=== PATIENT | female | born 1955 ===

== ENCOUNTER 2017-11-18 15:16 | Inpatient (IN) | payer OTHER ==
[2017-11-18 15:53] VITALS: BMI 22.9
[2017-11-18] MEDS ORDERED: Sodium Chloride 0.9% 1,000 ML IV ONE ×3 (16:01→16:58)
[2017-11-18] MEDS ORDERED: Sodium Chloride 0.9% 1,000 ML ONE ×2 (16:17→17:30)
[2017-11-18 16:27] LABS: BASO % 0.4 % (0.0-2.0); EOS % 0.2 % (0.0-4.0); HEMOGLOBIN 13.1 g/dL (11.0-16.0); LYMPH # 2.6 K/uL (1.0-4.3); LYMPH % 26.4 % (20.0-40.0); MEAN CELL VOLUME 90.6 fL (81.0-99.0); MEAN CORPUSCULAR HEMOGLOBIN 29.9 pg (27.0-31.0); MEAN CORPUSCULAR HGB CONC 33.1 g/dL (33.0-37.0); MEAN PLATELET VOLUME 10.8 fL (7.2-11.7); MONO # 0.5 K/uL (0.0-0.8); MONO % 5.1 % (0.0-10.0); NEUT # 6.8 K/uL (1.8-7.0); NEUT % 67.9 % (50.0-75.0); NRBC % 0.1 % (0.0-2.0); RBC 4.39 Mil/uL (3.80-5.20); RED CELL DISTRIBUTION WIDTH 13.1 % (11.5-14.5)
[2017-11-18 16:29] LABS: VENOUS BLOOD GAS BASE EXCESS 6.1 mmol/L (0.0-2.0); VENOUS BLOOD GAS PCO2 61 mmHg (40-60); VENOUS BLOOD GAS PO2 17 mm/Hg (30-55); VENOUS BLOOD PH 7.35 (7.32-7.43)
[2017-11-18 16:43] LABS: ALB/GLOB RATIO 1.4 (1.0-2.1); ALBUMIN 5.1 g/dL (3.5-5.0); CALCIUM 10.2 mg/dl (8.6-10.4)
[2017-11-18] MEDS ORDERED: (Novolin R) Insulin Human Regular 100 units/ml vial IVP ONE (16:57)
--- NOTE | 2017-11-18 17:25 | C.PDOC ---
History Of Present Illness 62-year-old female, presents to the emergency department with complaints of elevated blood sugar. PAtient had outpatient bloodwork done by PMD, who called her and said that blood sugar is elevated (>500) Patient admits to increased t jose alberto and urination. She denies any abdominal pain, nausea/vomiting, shortness of breath or chest pain. No PMHx of diabetes. No other complaints at this time. Time Seen by Provider: 11/18/17 15:55 Chief Complaint (Nursing): High Blood Sugar History Per: Patient History/Exam Limitations: no limitations Current Symptoms Are (Timing): Still Present Severity: Moderate Past Medical History Reviewed: Historical Data, Nursing Documentation, Vital Signs Vital Signs: Last Vital Signs Temp 98.4 F 11/18/17 15:53 Pulse 117 H 11/18/17 15:53 Resp 18 11/18/17 15:53 BP 101/69 11/18/17 15:53 Pulse Ox 100 11/18/17 15:53 - Medical History PMH: HTN, Hypercholesterolemia Family History: States: No Known Family Hx - Social History Hx Alcohol Use: No Hx Substance Use: No - Immunization History Hx Tetanus Toxoid Vaccination: No Hx Influenza Vaccination: No Hx Pneumococcal Vaccination: No Review Of Systems Constitutional: Negative for: Fever Cardiovascular: Negative for: Chest Pain Respiratory: Negative for: Shortness of Breath Gastrointestinal: Negative for: Nausea, Vomiting, Abdominal Pain Musculoskeletal: Negative for: Neck Pain, Back Pain Neurological: Negative for: Weakness, Numbness, Headache Physical Exam - Physical Exam Appears: Non-toxic, No Acute Distress Skin: Warm, Dry, No Rash Head: Atraumatic, Normacephalic Eye(s): bilateral: Normal Inspection, PERRL, EOMI Nose: Normal Oral Mucosa: Moist Lips: Normal Appearing Neck: Normal ROM Cardiovascular: Rhythm Regular, No Murmur Respiratory: Normal Breath Sounds, No Accessory Muscle Use Gastrointestinal/Abdominal: Soft, No Tenderness Back: Normal Inspection Extremity: Normal ROM, No Deformity, No Swelling Neurological/Psych: Oriented x3, Normal Speech ED Course And Treatment - Laboratory Results Result Diagrams: 11/18/17 16:19 11/18/17 16:19 O2 Sat by Pulse Oximetry: 100 Pulse Ox Interpretation: Normal (RA) Medical Decision Making Medical Decision Making: Plan: * Plan: * Bloodwork * IVF, Insulin * UA * Reassess and Disposition Disposition - Disposition Forms: [email or web address] ([place]) - Scribe Statement The provider has reviewed the documentation as recorded by the Scribe (Irina Roper) Provider Attestation: All medical record entries made by the Scribe were at my direction and personally dictated by me. I have reviewed the chart and agree that the record accurately reflects my personal performance of the history, physical exam, medical decision making, and the department course for this patient. I have also personally directed, reviewed, and agree with the discharge instructions and disposition.
[2017-11-18] MEDS ORDERED: (Novolin R) Insulin Human Regular 100 units/ml vial ONE (17:30)
[2017-11-18 18:29] LABS: URINE BILIRUBIN NEGATIVE (NEGATIVE); URINE BLOOD NEGATIVE (NEGATIVE); URINE CLARITY Clear (Clear); URINE COLOR Straw (YELLOW); URINE GLUCOSE (UA) 3+ mg/dL (Normal); URINE LEUKOCYTE ESTERASE NEG Leu/uL (Negative); URINE PROTEIN NEGATIVE (NEGATIVE); URINE UROBILINOGEN NORMAL mg/dL (0.2-1.0)
[2017-11-18 19:24] LABS: ALB/GLOB RATIO 1.2 (1.0-2.1); ALBUMIN 3.6 g/dL (3.5-5.0); CALCIUM 8.6 mg/dl (8.6-10.4)
[2017-11-18] MEDS: (Novolog) Insulin Aspart, Recombinant 100 u/ml 10 ml vial SC SCH (21:53)
[2017-11-19] MEDS ORDERED: Pneumococcal 23-Valent Vaccine IM ONE (00:02)
[2017-11-19 00:14] VITALS: RESP 20
[2017-11-19 07:13] LABS: MEAN CELL VOLUME 89.2 fL (81.0-99.0); MEAN CORPUSCULAR HGB CONC 33.6 g/dL (33.0-37.0); MEAN PLATELET VOLUME 10.7 fL (7.2-11.7); RBC 4.01 Mil/uL (3.80-5.20); RED CELL DISTRIBUTION WIDTH 13.2 % (11.5-14.5); WHITE BLOOD COUNT 9.1 K/uL (4.8-10.8)
[2017-11-19 07:45] LABS: ALB/GLOB RATIO 1.2 (1.0-2.1); ALBUMIN 3.6 g/dL (3.5-5.0); CALCIUM 9.2 mg/dl (8.6-10.4)
[2017-11-19] MEDS: (Novolog) Insulin Aspart, Recombinant 100 u/ml 10 ml vial SC SCH ×4 (08:33→22:08)
--- NOTE | 2017-11-19 09:20 | CP.PCM.PN ---
Subjective - Date & Time of Evaluation Date of Evaluation: 11/19/17 Time of Evaluation: 09:15 - Subjective Subjective: PGY2 Medicine Note for Dr. Alvarez Patient seen and examined this morning at bedside. Patient has a past medical history of hypertension and hypercholesterolemia. Patient was sent in yesterday by her PMD after he called her and told her that her blood sugar was >500. Patient has no prior history of diabetes. She has had increased thirst and urination for a "few weeks". She also reports worsening vision stating that she thinks she may need glasses now. She other pierre feels fine and has no complaints. Denies fevers, chills, nausea, vomiting, disequilibrium, chest pain, shortness of breath, numbness or tingling. Objective - Vital Signs/Intake and Output Vital Signs (last 24 hours): Temp Pulse Resp BP Pulse Ox 98.2 F 84 20 116/62 98 11/19/17 08:09 11/19/17 08:09 11/19/17 08:09 11/19/17 08:09 11/19/17 08:09 - Medications Medications: Current Medications Heparin Sodium (Porcine) (Heparin) 5,000 units SC Q12H [facility] Influenza Virus Vaccine (Fluzone Quad [id number]) 60 mcg IM .ONCE ONE Stop: 11/20/17 10:01 Insulin Aspart (Novolog) 0 unit SC [facility]; Protocol Last Admin: 11/19/17 08:33 Dose: 6 units Losartan Potassium (Cozaar) 100 mg PO DAILY [facility] Metformin HCl (Glucophage) 500 mg PO BID [facility] Metoprolol Succinate (Toprol Xl) 200 mg PO DAILY [facility] Pneumococcal Polyvalent Vaccine (Pneumovax 23 Vaccine) 0.5 ml IM .ONCE ONE Stop: 11/20/17 10:01 Rosuvastatin Calcium (Crestor) 10 mg PO [facility] Last Admin: 11/18/17 21:53 Dose: 10 mg - Labs Labs: 11/19/17 06:55 11/19/17 06:55 - Constitutional Appears: Non-toxic, No Acute Distress - Head Exam Head Exam: ATRAUMATIC, NORMOCEPHALIC - Eye Exam Eye Exam: EOMI, Normal appearance, PERRL Pupil Exam: NORMAL ACCOMODATION, PERRL - ENT Exam ENT Exam: Mucous Membranes Moist - Neck Exam Neck Exam: absent: Lymphadenopathy - Respiratory Exam Respiratory Exam: NORMAL BREATHING PATTERN. absent: Accessory Muscle Use, Rales, Rhonchi, Wheezes, Respiratory Distress - Cardiovascular Exam Cardiovascular Exam: REGULAR RHYTHM, +S1 - GI/Abdominal Exam GI & Abdominal Exam: Soft. absent: Distended, Firm, Guarding, Rigid, Tenderness - Extremities Exam Extremities Exam: absent: Calf Tenderness, Pedal Edema - Neurological Exam Neurological Exam: Alert, Awake, Oriented x3 - Psychiatric Exam Psychiatric exam: Normal Affect, Normal Mood - Skin Skin Exam: Dry, Warm Assessment and Plan - Assessment and Plan (Free Text) Plan: New-onset Diabetes Patient sent in by PMD for blood glucose >500. Patient denies any hx of diabetes BS 369 upon arrival Hgb A1c pending B-Hydroxybutyrate 1.38 VBG: pH 7.35, Glucose 483, Lactate 2.3 UA: Glucose 3+, trace ketones Medications: * Started on Meformin 500mg PO BID * ISS - low * Started on Lantus 10units SC HS Elevated Alk Phos Improving from 177 to 156 continue to monitor Hypertension Stable Re-start home medications: * Losartan 100mg PO daily * Metoprolol Succ 200mg PO daily Hypercholesterolemia Re-start home medications: * Crestor 10mg PO HS (takes atorvastatin 20mg PO HS at home) Prophylactic Care Heparin 5,000u SC q12h GI ppx no indicated All medical management per Dr. Antonio Hudson Conrad PGY2
[2017-11-19] MEDS ORDERED: Metoprolol Succinate 200 mg XL Tab PO SCH (10:00)
[2017-11-19] MEDS: Metoprolol Succinate 100 mg XL Tab PO SCH (10:53)
[2017-11-19] MEDS ORDERED: Dextrose 50% SYRINGE Inj (50 ml) IV PRN (14:39)
[2017-11-19] MEDS ORDERED: Glucagon Recombinant 1 mg Inj IM PRN (14:39)
[2017-11-19] MEDS ORDERED: (Lantus) Insulin Glargine, Recombinant SC SCH (22:00)
[2017-11-20 07:17] LABS: BASO % 0.3 % (0.0-2.0); EOS % 0.4 % (0.0-4.0); HEMOGLOBIN 12.4 g/dL (11.0-16.0); LYMPH # 3.5 K/uL (1.0-4.3); LYMPH % 38.1 % (20.0-40.0); MEAN CELL VOLUME 88.8 fL (81.0-99.0); MEAN CORPUSCULAR HGB CONC 33.7 g/dL (33.0-37.0); MEAN PLATELET VOLUME 10.5 fL (7.2-11.7); MONO # 0.4 K/uL (0.0-0.8); MONO % 4.4 % (0.0-10.0); NEUT # 5.1 K/uL (1.8-7.0); NEUT % 56.8 % (50.0-75.0); NRBC % 0.1 % (0.0-2.0); RBC 4.13 Mil/uL (3.80-5.20); RED CELL DISTRIBUTION WIDTH 13.1 % (11.5-14.5); WHITE BLOOD COUNT 9.1 K/uL (4.8-10.8)
[2017-11-20] MEDS: (Novolog) Insulin Aspart, Recombinant 100 u/ml 10 ml vial SC SCH ×4 (08:19→21:56)
[2017-11-20 08:20] LABS: ALB/GLOB RATIO 1.1 (1.0-2.1); ALBUMIN 3.5 g/dL (3.5-5.0); CALCIUM 9.5 mg/dl (8.6-10.4)
[2017-11-20] MEDS: (Novolog Mix 70/30) Insulin Aspart/Insulin Aspar 100 units/ml SC SCH ×2 (10:00→16:30)
[2017-11-20] MEDS ORDERED: Pneumococcal 23-Valent Vaccine IM ONE (10:00)
[2017-11-20] MEDS ORDERED: Influenza Vaccine 60 MCG/0.5 ML SYR (3 yr & up) IM ONE (10:00)
[2017-11-20] MEDS: Metoprolol Succinate 100 mg XL Tab PO SCH (10:18)
--- NOTE | 2017-11-20 13:12 | CP.PCM.PN ---
Subjective - Date & Time of Evaluation Date of Evaluation: 11/20/17 Time of Evaluation: 07:00 - Subjective Subjective: PGY2 Medicine Note for Dr. Alvarez Patient seen and examined at bedside and in no acute distress. Patient says she feels weak and tired. Patient denies any chest pain or shortness of breath. Patient said last night she had some tuna fish which upset her stomach and she vomited once. Now patient's stomach feels better. Patient denies any constipation or diarrhea. Objective - Vital Signs/Intake and Output Vital Signs (last 24 hours): Temp Pulse Resp BP Pulse Ox 98.3 F 110 H 20 116/77 95 11/20/17 09:00 11/20/17 09:00 11/20/17 09:00 11/20/17 09:00 11/20/17 09:00 Intake and Output: 11/20/17 11/20/17 06:59 18:59 Intake Total 200 Balance 200 - Medications Medications: Current Medications Dextrose (Glutose 15) 0 gm PO ONCE PRN; Protocol PRN Reason: Hypoglycemia Protocol Dextrose (Dextrose 50% Inj) 0 ml IV STAT PRN; Protocol PRN Reason: Hypoglycemia Protocol Glucagon (Glucagen Diagnostic Kit) 0 mg IM STAT PRN; Protocol PRN Reason: Hypoglycemia Protocol Heparin Sodium (Porcine) (Heparin) 5,000 units SC Q12H [facility] Last Admin: 11/20/17 10:19 Dose: 5,000 units Dextrose (Dextrose 5% In Water 1000 Ml) 1,000 mls @ 0 mls/hr IV .Q0M PRN; Protocol PRN Reason: Hypoglycemia Protocol Insulin Aspart (Novolog) 0 unit SC ACHS [facility]; Protocol Last Admin: 11/20/17 08:19 Dose: 4 units Insulin Aspart (Novolog Mix 70/30 (70/30 Units/Ml)) 6 units SC TIDAC [facility] Insulin Glargine (Lantus) 15 unit SC HS [facility] Losartan Potassium (Cozaar) 100 mg PO DAILY [facility] Last Admin: 11/20/17 10:19 Dose: 100 mg Metformin HCl (Glucophage) 500 mg PO BID [facility] Last Admin: 11/19/17 17:55 Dose: 500 mg Metoprolol Succinate (Toprol Xl) 200 mg PO DAILY [facility] Last Admin: 11/20/17 10:18 Dose: 200 mg Rosuvastatin Calcium (Crestor) 10 mg PO HS [facility] Last Admin: 11/19/17 22:04 Dose: 10 mg - Labs Labs: 11/20/17 07:00 11/20/17 07:00 - Additional Findings Additional findings: - Constitutional Appears: Non-toxic, No Acute Distress - Head Exam Head Exam: ATRAUMATIC, NORMOCEPHALIC - Eye Exam Eye Exam: EOMI, Normal appearance, PERRL Pupil Exam: NORMAL ACCOMODATION, PERRL - ENT Exam ENT Exam: Mucous Membranes Moist - Neck Exam Neck Exam: absent: Lymphadenopathy - Respiratory Exam Respiratory Exam: NORMAL BREATHING PATTERN. absent: Accessory Muscle Use, Rales, Rhonchi, Wheezes, Respiratory Distress - Cardiovascular Exam Cardiovascular Exam: REGULAR RHYTHM, +S1 - GI/Abdominal Exam GI & Abdominal Exam: Soft. absent: Distended, Firm, Guarding, Rigid, Tenderness - Extremities Exam Extremities Exam: absent: Calf Tenderness, Pedal Edema - Neurological Exam Neurological Exam: Alert, Awake, Oriented x3 - Psychiatric Exam Psychiatric exam: Normal Affect, Normal Mood - Skin Skin Exam: Dry, Warm Assessment and Plan - Assessment and Plan (Free Text) Assessment: New-onset Diabetes Patient sent in by PMD for blood glucose >500. Patient denies any hx of diabetes BS 369 upon arrival Hgb A1c pending B-Hydroxybutyrate 1.38 VBG: pH 7.35, Glucose 483, Lactate 2.3 UA: Glucose 3+, trace ketones digester operator helper consulted, help appreciated Medications: * Started on Meformin 500mg PO BID * ISS - low * increased Lantus 15units SC HS (from 10 U) * started Novolog 70/30 6 u tidac on 11/20/17 Elevated Alk Phos Improving from 177 to 156 to 137 continue to monitor Hypertension Stable Re-start home medications: * Losartan 100mg PO daily * Metoprolol Succ 200mg PO daily Hypercholesterolemia Re-start home medications: * Crestor 10mg PO HS (takes atorvastatin 20mg PO HS at home) Prophylactic Care Heparin 5,000u SC q12h GI ppx no indicated All medical management per Dr. Alvarez
[2017-11-20] MEDS: Aluminum Hydroxide/Magnesium Hydroxide Susp (30 mL) PO SCH (17:41)
[2017-11-20] MEDS ORDERED: (Lantus) Insulin Glargine, Recombinant SC SCH (22:00)
[2017-11-20 23:36] VITALS: O2SAT 97
[2017-11-21 07:20] LABS: BASO % 0.4 % (0.0-2.0); EOS % 0.5 % (0.0-4.0); HEMOGLOBIN 12.2 g/dL (11.0-16.0); LYMPH # 2.9 K/uL (1.0-4.3); LYMPH % 38.4 % (20.0-40.0); MEAN CELL VOLUME 89.2 fL (81.0-99.0); MEAN CORPUSCULAR HEMOGLOBIN 29.9 pg (27.0-31.0); MEAN CORPUSCULAR HGB CONC 33.5 g/dL (33.0-37.0); MEAN PLATELET VOLUME 9.9 fL (7.2-11.7); MONO # 0.5 K/uL (0.0-0.8); MONO % 6.2 % (0.0-10.0); NEUT # 4.1 K/uL (1.8-7.0); NEUT % 54.5 % (50.0-75.0); NRBC % 0.1 % (0.0-2.0); RBC 4.09 Mil/uL (3.80-5.20); RED CELL DISTRIBUTION WIDTH 13.3 % (11.5-14.5); WHITE BLOOD COUNT 7.5 K/uL (4.8-10.8)
--- NOTE | 2017-11-21 07:26 | CP.PCM.PN ---
Subjective - Date & Time of Evaluation Date of Evaluation: 11/21/17 Time of Evaluation: 07:26 - Subjective Subjective: PGY2 Medicine Note for Dr. Alvarez Patient seen and examined this morning at bedside. No acute events overnight. Patient states that she did not vomit yesterday and is no longer experiencing any abdominal pain. Patient feels much better and has no complaints at this time. Denies fevers, chills, nausea, vomiting, diarrhea, constipation, chest pain, shortness of breath, numbness or tingling. Objective - Vital Signs/Intake and Output Vital Signs (last 24 hours): Temp Pulse Resp BP Pulse Ox 98.7 F 74 20 114/74 97 11/21/17 05:30 11/21/17 05:30 11/21/17 05:30 11/21/17 05:30 11/21/17 05:30 Intake and Output: 11/21/17 11/21/17 06:59 18:59 Intake Total 600 Balance 600 - Medications Medications: Current Medications Al Hydrox/Mg Hydrox/Simethicone (Maalox 30 Ml) 30 ml PO TID [facility] Last Admin: 11/20/17 17:41 Dose: 30 ml Dextrose (Glutose 15) 0 gm PO ONCE PRN; Protocol PRN Reason: Hypoglycemia Protocol Dextrose (Dextrose 50% Inj) 0 ml IV STAT PRN; Protocol PRN Reason: Hypoglycemia Protocol Famotidine (Pepcid) 20 mg PO DAILY [facility] Last Admin: 11/20/17 16:52 Dose: 20 mg Glucagon (Glucagen Diagnostic Kit) 0 mg IM STAT PRN; Protocol PRN Reason: Hypoglycemia Protocol Heparin Sodium (Porcine) (Heparin) 5,000 units SC Q12H [facility] Last Admin: 11/20/17 21:54 Dose: 5,000 units Dextrose (Dextrose 5% In Water 1000 Ml) 1,000 mls @ 0 mls/hr IV .Q0M PRN; Protocol PRN Reason: Hypoglycemia Protocol Insulin Aspart (Novolog) 0 unit SC ACHS [facility]; Protocol Last Admin: 11/20/17 21:56 Dose: Not Given Insulin Aspart (Novolog Mix 70/30 (70/30 Units/Ml)) 6 units SC TIDAC [facility] Last Admin: 11/20/17 16:30 Dose: 6 units Insulin Glargine (Lantus) 15 unit SC HS [facility] Last Admin: 11/20/17 21:55 Dose: 15 units Losartan Potassium (Cozaar) 100 mg PO DAILY [facility] Last Admin: 11/20/17 10:19 Dose: 100 mg Metformin HCl (Glucophage) 500 mg PO BID [facility] Last Admin: 11/20/17 17:41 Dose: 500 mg Metoprolol Succinate (Toprol Xl) 200 mg PO DAILY [facility] Last Admin: 11/20/17 10:18 Dose: 200 mg Rosuvastatin Calcium (Crestor) 10 mg PO [facility] Last Admin: 11/20/17 21:54 Dose: 10 mg - Labs Labs: 11/21/17 07:10 11/20/17 07:00 - Additional Findings Additional findings: - Constitutional Appears: Non-toxic, No Acute Distress - Head Exam Head Exam: ATRAUMATIC, NORMOCEPHALIC - Eye Exam Eye Exam: EOMI, Normal appearance, PERRL Pupil Exam: NORMAL ACCOMODATION, PERRL - ENT Exam ENT Exam: Mucous Membranes Moist - Neck Exam Neck Exam: absent: Lymphadenopathy - Respiratory Exam Respiratory Exam: NORMAL BREATHING PATTERN. absent: Accessory Muscle Use, Rales, Rhonchi, Wheezes, Respiratory Distress - Cardiovascular Exam Cardiovascular Exam: REGULAR RHYTHM, +S1 - GI/Abdominal Exam GI & Abdominal Exam: Soft. absent: Distended, Firm, Guarding, Rigid, Tenderness - Extremities Exam Extremities Exam: absent: Calf Tenderness, Pedal Edema - Neurological Exam Neurological Exam: Alert, Awake, Oriented x3 - Psychiatric Exam Psychiatric exam: Normal Affect, Normal Mood - Skin Skin Exam: Dry, Warm Assessment and Plan - Assessment and Plan (Free Text) Plan: New-onset Diabetes Patient sent in by PMD for blood glucose >500. Patient denies any hx of diabetes BS 369 upon arrival Hgb A1c pending * per laboratory, lab needed to be sent out and will result in 2-3 days. * Dr. Alvarez stated that he will follow up Hgb A1c with patient as outpatient. B-Hydroxybutyrate 1.38 VBG: pH 7.35, Glucose 483, Lactate 2.3 UA: Glucose 3+, trace ketones environmental educator consulted, help appreciated Medications: * Started on Meformin 500mg PO BID * ISS - low * increased Lantus 15units SC HS (from 10 U) * started Novolog 70/30 6 u tidac on 11/20/17 Elevated Alk Phos Improving from 177 to 156 to 137 continue to monitor Hypertension Stable Re-start home medications: * Losartan 100mg PO daily * Metoprolol Succ 200mg PO daily Hypercholesterolemia Re-start home medications: * Crestor 10mg PO HS (takes atorvastatin 20mg PO HS at home) Prophylactic Care Heparin 5,000u SC q12h GI ppx no indicated DISPO: Patient was discharged on 11/21 with the following instructions: Patient is to be discharged home per Dr. Alvarez. Patient is to follow up with her primary care physician within 2-3 days. Patient has been diagnosed with Diabetes type 2 and has been started on new medication. It is very important that she takes it as directed. - Insulin Aspart, Recombinant [Novolog]: inject 6 units three times per day before meals. - Insulin Glargine, Recombinant [Lantus]: inject 15 units once a day at bedtime - Metformin 500mg take 1 tab by mouth twice a day Patient is to check her blood sugars at least three times per day (once in morning before breakfast, lunch time and before bed) - Keep a daily log of blood sugar levels and bring with you to your primary care physician's office. If patient has any questions, she should call her primary care physician's office. If patient experiences any new or worsening symptoms, please go directly to the nearest emergency department. El paciente debe ser dado de maryjo a domicilio por el Dr. Alvarez. El paciente debe hacer un seguimiento con hernandez mdico de atencin primaria dentro de 2-3 waller. El paciente reina sido diagnosticado con Diabetes tipo 2 y reina comenzado a jessica un nuevo medicamento. Es muy importante que kaitlynn lo tome segn las indicaciones. - Insulina Aspart, Recombinante [Novolog]: inyecte 6 unidades julianne veces al da antes de las comidas. - Insulina Glargina, Recombinante [Lantus]: inyecte 15 unidades stephy vez al da a la hora de acostarse - Metformina 500 mg jessica 1 ficha por va oral dos veces al da El paciente debe controlar carisa niveles de azcar en la amanda al menos julianne veces al da (stephy vez en la maana antes del desayuno, la hora del almuerzo y antes de acostarse) - Mantenga un registro diario de los niveles de azcar en la amanda y llvelo a la consulta de hernandez mdico de atencin primaria. Si el paciente tiene alguna pregunta, debe llamar al consultorio de hernandez mdico de atencin primaria. Si el paciente experimenta sntomas nuevos o que empeoran, dirjase directamente al servicio de urgencias ms cercano. All medical management per Dr. Antonio Hudson Conrad PGY2
[2017-11-21 07:57] LABS: ALB/GLOB RATIO 1.1 (1.0-2.1); ALBUMIN 3.6 g/dL (3.5-5.0); ALT/SGPT 35 U/L (9-52); AST/SGOT 26 U/L (14-36); BLOOD UREA NITROGEN 18 mg/dL (7-17); CALCIUM 9.5 mg/dl (8.6-10.4); GFR NON-AFRICAN AMERICAN 50
[2017-11-21 08:06] VITALS: BP 165/67; PULSE 72; TEMP 98.3
[2017-11-21] MEDS: (Novolog Mix 70/30) Insulin Aspart/Insulin Aspar 100 units/ml SC SCH ×2 (08:13→12:46)
--- NOTE | 2017-11-21 08:14 | HP ---
HISTORY OF PRESENT ILLNESS: The patient is a 62-year-old female with a history of diabetic foot ulcer. The patient sees the catering coordinator in the emergency room for possible osteomyelitis. The patient is admitted to the hospital for of the foot. The patient has a history of hypertension . PHYSICAL EXAMINATION: VITAL SIGNS: Temperature 98, pulse 90. HEENT: Within normal limits. NECK: Supple. CHEST: Symmetrical. HEART: Regular. ABDOMEN: Soft. EXTREMITIES: No edema. IMPRESSION: The patient suffers from ulcer in the left foot. PLAN: The patient is to get bedrest. Supportive care. Antibiotics. Podiatry consult. Alysha Alvarez MD
[2017-11-21] MEDS: (Novolog) Insulin Aspart, Recombinant 100 u/ml 10 ml vial SC SCH ×2 (08:15→12:30)
[2017-11-21] MEDS: Metoprolol Succinate 100 mg XL Tab PO SCH (11:22)
[2017-11-21] MEDS: Aluminum Hydroxide/Magnesium Hydroxide Susp (30 mL) PO SCH ×2 (11:23→14:01)
== END 2017-11-21 17:20 | disposition home or self-care (01) | DRG 639 ==
LOC: C.ER 15:16 → C.3T 19:00
PROVIDERS: ADMIT Internal Medicine Pulmonary Disease; ATTEND Internal Medicine Pulmonary Disease
DX: E11.621 Type 2 diabetes mellitus with foot ulcer (principal); E11.65 Type 2 diabetes mellitus with hyperglycemia; I10 Essential (primary) hypertension; K59.00 Constipation, unspecified; E78.00 Pure hypercholesterolemia, unspecified; L97.529 Non-pressure chronic ulcer of other part of left foot with unspecified severity